=== PATIENT | female | born 1950 | race Caucasian/White ===

== ENCOUNTER → 2016-08-24 | Outpatient (CLI) | payer OTHER | LOC: FIMAGING 13:51 | PROVIDERS: ATTEND Physician Assistant | DX: J18.9 Pneumonia, unspecified organism (principal) ==

== ENCOUNTER → 2016-10-12 | Outpatient (CLI) | payer OTHER | LOC: FIMAGING 14:50 | PROVIDERS: ATTEND Physician Assistant | DX: J18.9 Pneumonia, unspecified organism (principal); M16.11 Unilateral primary osteoarthritis, right hip; M25.551 Pain in right hip ==

== ENCOUNTER 2016-12-08 13:04 | Day surgery (SDC) | payer OTHER ==
--- NOTE | 2016-12-08 13:20 | PDHPUP ---
History & Physical Update H&P update statement: This history and physical update is based on an assessment of the patient which was completed after admission or registration (within 24 hours), but prior to the surgery/procedure. H&P update: H&P reviewed & patient examined, no change in patient's condition since H&P completed
--- NOTE | 2016-12-08 13:21 | PDPROPOC ---
Sedation Plan of Care Sedation Plan of Care: vital signs stable, mental status noted, patient educated of risks, benefits, alternatives, patient can tolerate sedation ASA Classification: ASA 2 Planned drugs: fentanyl, midazolam Mallampati Score: Class 2 Mallampati Reference Image:
[2016-12-08 14:28] VITALS: PULSE 74; TEMP 97.7
[2016-12-08] MEDS ORDERED: LIDOCAINE 1% 300 MG/30 ML SDV ONE (14:33)
[2016-12-08] MEDS ORDERED: LIDOCAINE 2% JELLY 5 ML TUBE ONE (14:34)
[2016-12-08] MEDS ORDERED: fentaNYL 100 MCG/2 ML INJ ONE (14:44)
[2016-12-08] MEDS ORDERED: MIDAZOLAM 2 MG/2 ML VIAL ONE ×2 (14:44→15:09)
[2016-12-08 17:12] VITALS: RESP 14
[2016-12-08 17:27] VITALS: BP 139/84; O2SAT 94
== END 2016-12-08 17:35 | disposition home or self-care (01) ==
LOC: FSGY 13:04
PROVIDERS: ATTEND Internal Medicine Critical Care Medicine
PROC: 0B9C8ZX Drainage of Right Upper Lung Lobe, Via Natural or Artificial Opening Endoscopic, Diagnostic (ICD-10-PCS; principal; 2016-12-08 14:00)
DX: R05 Cough (principal); R91.8 Other nonspecific abnormal finding of lung field; I10 Essential (primary) hypertension; E03.9 Hypothyroidism, unspecified; Z80.3 Family history of malignant neoplasm of breast; Z82.3 Family history of stroke
CPT/HCPCS: J0171; J2250; J3010

== ENCOUNTER → 2017-01-27 | Outpatient (CLI) | payer OTHER | LOC: CIMAGING 11:17 | PROVIDERS: ATTEND Specialist | DX: J18.9 Pneumonia, unspecified organism (principal); J98.4 Other disorders of lung | CPT/HCPCS: 71250-PO ==

== ENCOUNTER → 2017-03-01 | Outpatient (CLI) | payer OTHER | LOC: FIMAGING 14:05 | PROVIDERS: ATTEND Physician Assistant | DX: Z12.31 Encounter for screening mammogram for malignant neoplasm of breast (principal); Z80.3 Family history of malignant neoplasm of breast | CPT/HCPCS: G0202 ==

== ENCOUNTER → 2017-04-19 | Outpatient (CLI) | payer OTHER | LOC: FIMAGING 09:04 | PROVIDERS: ATTEND Physician Assistant | DX: Z13.820 Encounter for screening for osteoporosis (principal); M85.80 Other specified disorders of bone density and structure, unspecified site; Z78.0 Asymptomatic menopausal state ==

== ENCOUNTER → 2017-07-23 | Outpatient (CLI) | payer OTHER | LOC: FIMAGING 08:14 | PROVIDERS: ATTEND Orthopaedic Surgery | DX: Z01.818 Encounter for other preprocedural examination (principal); M16.0 Bilateral primary osteoarthritis of hip ==

== ENCOUNTER 2017-08-02 11:06 | Inpatient (IN) | payer OTHER ==
--- NOTE | 2017-08-02 06:32 | PDHPUP ---
History & Physical Update H&P update statement: This history and physical update is based on an assessment of the patient which was completed after admission or registration (within 24 hours), but prior to the surgery/procedure. H&P update: no change in patient's condition since H&P completed
--- NOTE | 2017-08-02 06:33 | PDIAF ---
- Diagnosis Diagnosis: right hip djd Code Status: Full Code - Medication Management Discharge Medications: Medications to Continue on Transfer Aspirin [Aspirin 81mg (*)] 81 mg PO DAILY 12/07/16 [Last Taken 11/30/16] Levothyroxine [Synthroid 75 mcg (*)] 75 mcg PO SUMOWETHFRSA@06 12/07/16 [Last Taken 12/08/16] Valsartan [Diovan] 320 mg PO DAILY 12/07/16 [Last Taken 12/08/16] Discharge Medications: Refer to the Discharge Home Medication list for PRN reason. - Orders Services needed: Physical Therapy Diet Recommendation: no restrictions on diet Diet Texture: Regular Texture Diet Activity/Weight Bearing Restrictions: wbat. anterior hip precautions. keep dressing in place. if dressing becomes saturated change daily. f/u at two weeks. seek attn for increasing pain, drainage, swelling or other focal complaint - Follow Up Care Current Providers and Referrals: Jill Hirsch PA [Primary Care Provider] -
[~2017-08-02 11:06] MED LIST: ROPIVACAINE 0.2% 80 MG, EPINEPHrine 0.2 MG, KETOROLAC TROMETHAMINE 30 MG, morphINE 10 M... IU ONE; TRANEXAMIC ACID 1,000 MG in NS 100 ML IV ONE; VANCOMYCIN 1 GM in NS 250 ML IV ONE; VANCOMYCIN PHARMACY TO DOSE MISC ONE
[2017-08-02] MEDS ORDERED: LIDOCAINE 1% 2 ML INJ ID PRN (11:19)
[2017-08-02] MEDS ORDERED: FAMOTIDINE 20 MG TAB PO ONE (11:19)
[2017-08-02] MEDS ORDERED: LR 1,000 ML IV ONE (11:19)
[2017-08-02] MEDS ORDERED: ACETAMINOPHEN 325 MG TAB PO ONE (11:19)
[2017-08-02] MEDS ORDERED: ACETAMINOPHEN 325 MG TAB ONE (11:48)
[2017-08-02] MEDS ORDERED: MIDAZOLAM 2 MG/2 ML VIAL IVP ONE (12:25)
--- NOTE | 2017-08-02 12:27 | PDANEPAE ---
ANE History of Present Illness DJD R hip s/f R RICKY ANE Past Medical History - Cardiovascular History Hx Hypertension: Yes Hx Arrhythmias: No Hx Chest Pain: No Hx Coronary Artery / Peripheral Vascular Disease: No Hx CHF / Valvular Disease: No Hx Palpitations: No Cardiovascular History Comment: pcp monitors bp meds. STRESS TEST ' WNL. - Pulmonary History Hx COPD: No Hx Asthma/Reactive Airway Disease: No Hx Recent Upper Respiratory Infection: No Hx Oxygen in Use at Home: No Hx Sleep Apnea: No Sleep Apnea Screening Result - Last Documented: Negative Pulmonary History Comment: BILAT PNEUMONIA W/RESIDUAL COUGH-07-29;. 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 breast biopsy- surgical. breast biopsy x2 in imaging ANE Review of Systems Review of Systems: - Exercise capacity METS (RN): 4 METS - Systems Hematologic/Lymphatic: Reports: no symptoms ANE Patient History - Allergies Allergies/Adverse Reactions: Cephalosporins Allergy (Verified 07/28/17 10:24) Rash diphenhydramine [From Benadryl] Allergy (Verified 08/02/17 11:31) Anxiety meperidine [From Demerol] Allergy (Verified 08/02/17 11:31) Anxiety nitrofurantoin [From Macrodantin] Allergy (Verified 07/28/17 10:24) Rash Penicillins Allergy (Verified 07/28/17 10:24) Rash promethazine [From Phenergan] Allergy (Verified 07/28/17 10:24) Other-Enter Comments - Home Medications Home Medications: Aspirin [Aspirin 81mg (*)] 81 mg PO DAILY 12/07/16 [Last Taken 07/27/17] Levothyroxine [Synthroid 75 mcg (*)] 75 mcg PO SUMOWETHFRSA@06 12/07/16 [Last Taken 08/02/17] Valsartan [Diovan] 320 mg PO DAILY 12/07/16 [Last Taken 08/01/17] - NPO status NPO Since - Liquids (Date): 08/02/17 NPO Since - Liquids (Time): 09:00 NPO Since - Solids (Date): 08/01/17 NPO Since - Solids (Time): 21:30 - Smoking Hx Smoking Status: Never smoked - Family Anes Hx Family Hx Anesthesia Complications: none ANE Labs/Vital Signs - Labs - CBC WBC: rewiewed and okay - Vital Signs Blood Pressure: 158/87 Heart Rate: 73 Respiratory Rate: 15 O2 Sat (%): 96 Height: 160.02 cm Weight: 58.967 kg ANE Physical Exam - Airway Neck exam: FROM Mallampati Score: Class 2 Mouth exam: normal dental/mouth exam - Pulmonary Pulmonary: no respiratory distress - Cardiovascular Cardiovascular: regular rate and rhythym - ASA Status ASA Status: II ANE Anesthesia Plan Anesthesia Plan: spinal
[2017-08-02] MEDS ORDERED: fentaNYL 100 MCG/2 ML INJ ONE (12:39)
[2017-08-02] MEDS ORDERED: PROPOFOL/EMULSION 500 MG/50 ML BOTTLE IV ONE (12:39)
[2017-08-02] MEDS ORDERED: BACITRACIN 50,000 UNITS/10 ML SYR IRR ONE (13:15)
[2017-08-02] MEDS ORDERED: PHENYLEPHRINE HCL 100 MCG/ML SYR ONE (13:18)
[2017-08-02] MEDS ORDERED: epHEDrine SULFATE 10 MG/ML SYR ONE (13:47)
[2017-08-02] MEDS ORDERED: PROPOFOL 200 MG/20 ML VIAL ONE (14:08)
[2017-08-02] MEDS ORDERED: NALOXONE HCL 0.4 MG/ML INJ IVP PRN (14:18)
[2017-08-02] MEDS ORDERED: ACETAMINOPHEN 500 MG TAB PO PRN (14:18)
[2017-08-02] MEDS ORDERED: ALBUTEROL 3 ML DEYVIAL IH PRN (14:18)
[2017-08-02] MEDS ORDERED: HYDROCODONE/APAP 5/325 TAB PO PRN (14:18)
[2017-08-02] MEDS ORDERED: LR 500 ML IV PRN (14:18)
[2017-08-02] MEDS ORDERED: ONDANSETRON 4 MG/2 ML VIAL IVP PRN (14:18)
[2017-08-02] MEDS ORDERED: DEXAMETHASONE 4 MG/ML VIAL IVP PRN (14:18)
[2017-08-02] MEDS ORDERED: LABETALOL HCL 5 MG/ML 20 ML MDV IVP PRN (14:18)
[2017-08-02] MEDS ORDERED: fentaNYL 100 MCG/2 ML INJ IVP PRN (14:18)
[2017-08-02] MEDS ORDERED: oxyCODONE IR 5 MG TAB PO PRN (14:18)
[2017-08-02] MEDS ORDERED: PHENYLEPHRINE HCL 100 MCG/ML SYR IVP PRN (14:18)
[2017-08-02] MEDS ORDERED: BISACODYL 10 MG SUPP PR PRN (14:21)
[2017-08-02] MEDS ORDERED: CYCLOBENZAPRINE 10 MG TAB PO PRN (14:21)
[2017-08-02] MEDS ORDERED: MAGNESIUM HYDROXIDE 30 ML UDCUP PO PRN (14:21)
[2017-08-02] MEDS ORDERED: LACTULOSE 20 GM/30 ML UDCUP PO PRN (14:21)
[2017-08-02] MEDS ORDERED: METOCLOPRAMIDE 10 MG/2 ML VIAL IVP PRN (14:21)
[2017-08-02] MEDS ORDERED: TEMAZEPAM 15 MG CAP PO PRN (14:21)
[2017-08-02] MEDS ORDERED: POLYETHYLENE GLYCOL 3350 17 GM PKT PO PRN (14:21)
--- NOTE | 2017-08-02 14:21 | POSTOPPROG ---
Post Op Note Date of Operation: 08/02/17 Surgeon: Oscar Salamanca Front Office Help: ashok Anesthesiologist: arslan Anesthesia: IV Sedation, Spinal Pre-op Diagnosis: right hip djd Post-op Diagnosis: same Indication: same Procedure: right hip jesus Inf/Abcess present in the surg proc area at time of surgery?: No Depth: Deep Incisional (Fascial) EBL: 100-500 Complications: none
[2017-08-02] MEDS ORDERED: LR 1,000 ML IV SCH (14:30)
[2017-08-02] MEDS: TRANEXAMIC ACID 650 MG TAB PO SCH (16:29)
[2017-08-02] MEDS: oxyCODONE IR 5 MG TAB PO PRN ×3 (18:25→23:39)
--- NOTE | 2017-08-02 18:35 | PDMN ---
Medical Necessity Medical necessity: IP surgery per [facility] cpt [id number] R RICKY
[2017-08-02] MEDS: FAMOTIDINE 20 MG TAB PO SCH (21:24)
[2017-08-02] MEDS: SENNOSIDES/DOCUSATE SODIUM TAB PO SCH (21:24)
[2017-08-02] MEDS: ASPIRIN 325 MG TAB PO SCH (23:39)
[2017-08-03] MEDS: oxyCODONE IR 5 MG TAB PO PRN ×2 (06:00→11:08)
[2017-08-03] MEDS: TRANEXAMIC ACID 650 MG TAB PO SCH (06:00)
--- NOTE | 2017-08-03 07:36 | PDIAF ---
- Diagnosis Diagnosis: right hip djd Code Status: Full Code - Medication Management Discharge Medications: Medications to Continue on Transfer Aspirin [Aspirin 81mg (*)] 81 mg PO DAILY 12/07/16 [Last Taken 07/27/17] Levothyroxine [Synthroid 75 mcg (*)] 75 mcg PO SUMOWETHSA@06 12/07/16 [Last Taken 08/02/17] Valsartan [Diovan] 320 mg PO DAILY 12/07/16 [Last Taken 08/01/17] Aspirin [Aspirin 325 mg (*)] 325 mg PO DAILY tab 08/03/17 [Last Taken Unknown] oxyCODONE IR [Oxycodone Ir (*)] 5 - 10 mg PO Q4 PRN #50 tab 08/03/17 [Last Taken Unknown] Discharge Medications: Refer to the Discharge Home Medication list for PRN reason. - Orders Services needed: Physical Therapy Diet Recommendation: no restrictions on diet Diet Texture: Regular Texture Diet Activity/Weight Bearing Restrictions: wbat. anterior hip precautions. keep dressing in place. if dressing becomes saturated change daily. f/u at two weeks. seek attn for increasing pain, drainage, swelling or other focal complaint Additional Instructions: TOTAL JOINT ARTHROPLASTY DISCHARGE INSTRUCTIONS 1. Your surgeon follows the [facility] protocol for reducing your risk of DVT (blood clots) following surgery. Medication will be ordered to prevent blood clots. A sudden increase in calf pain and/or swelling could indicate a blood clot in your leg. If this occurs, please call your surgeon or his/her administrative sales assistant. An ultrasound of the leg may be necessary to diagnose a blood clot. If you have conditions that make you a higher risk for blood clots, your surgeon may use more aggressive ways to prevent them. Notify your surgeon if you think you are a high risk for blood clots. 2. Wear your white surgical stockings (DANNY hose) for 2 weeks. This decreases your swelling and may help prevent blood clots. It is ok to remove DANNY hose at night time to give your legs a break. 3. Swelling and bruising in the surgical leg is common. If you feel that it is excessive, please notify your surgeon. 4. Elevate your surgical leg with the ankle above the hip several times every day. Please keep the leg straight when you elevate by putting pillows under your foot. Do not put pillows under your knee. This will make being able to fully straighten more difficult. This is uncomfortable, but try to do it as much as possible. 5. For total knee replacements use compressive wrap on your knee for 3-5 days after surgery, then you can discontinue it. 6. Use a walker or crutches for 1-2 weeks. Progress your weight-bearing as tolerated. You may start to use a cane when you feel stable and safe. 7. You will receive physical therapy instructions in the hospital. Continue those exercises at home. There are additional exercises in the total joint booklet you were given before surgery. Outpatient physical therapy will begin 7- 10 days after surgery. Please schedule this in advance. 8. Use ice on your knee at least 3-5 times every day for 30 minutes. This helps reduce pain and swelling. Also use it at night before falling asleep. 9. Leave your surgical dressing in place for 2 weeks. Your dressing is water resistant, but not waterproof. Cover it with Saran Wrap or Dikng-l-Kerh before showering. You may shower as soon as you feel safe entering a shower. If you notice bleeding from your incision 2 or 3 days after surgery, please notify your surgeon. 10. Due to narcotics, decreased activity and altered diet, most patients experience constipation after surgery. Use [id number] stool softeners while you are on narcotics. 11. You may drive a car when you are comfortable bearing weight, have good muscular control of your leg and are off narcotics. This usually occurs 2-4 weeks after surgery, depending on which leg was operated on. 12. If there are questions not addressed here, please refer the [facility] book given for more information. If you still have questions, please contact your surgeon s office. 13. If you have a life-threatening emergency, please call 911 and go to the emergency room immediately. For non-life threatening emergencies, please call your physicians office for advice before going to the emergency room. - Follow Up Care Current Providers and Referrals: Jill Hirsch PA [Primary Care Provider] - Oscar Salamanca MD [Medical Doctor] -
--- NOTE | 2017-08-03 07:38 | SOAPPROG ---
SOAP Progress Note Assessment/Plan: Assessment: s/p right jesus Plan: d/c home when cleared by pt anterior hip precautions seek attn for complications f/u at two weeks dvt precautions reviewed 08/03/17 07:36 Subjective: slight pain no cp or sob Objective: Vital Signs Temp Pulse Resp BP Pulse Ox 37.4 C 77 16 111/55 L 98 08/03/17 07:24 08/03/17 07:24 08/03/17 07:24 08/03/17 07:24 08/03/17 07:24 Laboratory Results 08/03/17 04:56 08/02/17 08/03/17 08/04/17 05:59 05:59 05:59 Intake Total 1270 Output Total 200 400 Balance 1070 -400 left iliac dressing reinforced old serrous drainage intact pf,df,ehl toes warm and pink neg homans cassie xrays stable anatomic alignment ICD10 Worksheet Patient Problems: Problems Problem Status Onset Hip arthritis Acute - ICD10 Problem Qualifiers (1) Hip arthritis
[2017-08-03] MEDS: ASPIRIN 325 MG TAB PO SCH (07:40)
[2017-08-03] MEDS: SENNOSIDES/DOCUSATE SODIUM TAB PO SCH (07:40)
[2017-08-03] MEDS: FAMOTIDINE 20 MG TAB PO SCH (07:41)
[2017-08-03] MEDS ORDERED: VALSARTAN 160 MG TAB PO SCH (09:00)
[2017-08-03] MEDS ORDERED: NON-FORMULARY NEW DRUG (Valsartan [Diovan] 320 MG) PO SCH (09:00)
--- NOTE | 2017-08-03 10:47 | ASMTCMCOM ---
CM Note CM Note Notes: Pt medically stable for d/c with [facility] PT. Orders to be obtained via [employer]. Date Signed: 08/03/2017 10:47 AM Electronically Signed By:MARIELENA Graham
[2017-08-03 11:54] VITALS: BP 114/61
[2017-08-04] MEDS ORDERED: LEVOTHYROXINE 75 MCG TAB PO SCH (06:00)
--- NOTE | 2017-08-13 07:20 | GDS ---
[f rep st] DISCHARGE SUMMARY ADMISSION DIAGNOSIS: Right hip degenerative joint disease. DISCHARGE DIAGNOSIS: Right hip degenerative joint disease. PROCEDURE: Right total hip arthroplasty. HISTORY OF PRESENT ILLNESS: Halie Bey is a 66-year-old woman with end-stage arthritis to her [facility] hip. She has clinical radiographic features consistent with this. She presents electively for a total hip replacement. HOSPITAL COURSE: The patient was admitted to the hospital floor after uncomplicated total hip arthro plasty. She quickly progressed with physical therapy. At the time of discharge, she is tolerating a n oral diet. Pain was well-controlled on oral medicines. She is voiding without difficulty. Dressi ngs are clean, dry, and intact. She has no calf swelling or tenderness. Negative Homans. X-rays ar e anatomic and serial hematocrit has remained stable. She has been cleared by Physical Therapy and u justinrstands her precautions. DISCHARGE ACTIVITY: She is weightbearing as tolerated. Anterior hip precautions will be observed. No soaking or immersion. May shower without the bandage. DISCHARGE MEDICATIONS: Oxycodone 5 mg 1-2 every 6 hours as needed for pain, aspirin 325 mg p.o. catie y for blood thinning. DISCHARGE INSTRUCTIONS: Follow up in 2 weeks. Seek attention for increasing swelling, redness, pain , other focal complaints. /[id number]/MODL
--- NOTE | 2017-08-13 07:45 | GOP ---
[f rep st] OPERATIVE REPORT DATE OF OPERATION: 08/02/2017 SURGEON: Oscar Salamanca MD SUPERVISOR FINISHING ROOM: Juan Pablo Koch, SENIOR SQL DEVELOPER, [facility], who was a medical necessity for the entirety of the case. PREOPERATIVE DIAGNOSIS: Right hip degenerative joint disease. POSTOPERATIVE DIAGNOSIS: Right hip degenerative joint disease. PROCEDURE PERFORMED: Right total hip arthroplasty, anterior/MAKOplasty. FINDINGS: SPECIMENS: To Pathology, femoral head. ESTIMATED BLOOD LOSS: 200 cc. INDICATIONS: The patient is a 66-year-old woman who has end-stage arthritis to her right hip. She h as failed all attempts at conservative management. I have recommended total hip replacement. She un derstood the risks, benefits, alternatives, and wished to proceed. Written consent was signed and pl aced in patient's chart. DESCRIPTION OF PROCEDURE: The patient was identified in the preanesthesia area, the right hip clearl y demarcated as the operative site with indelible marker. She was given 1 g of vancomycin given a pe nicillin allergy. In the OR, a spinal anesthetic was placed followed by sedation. She was positione d in the supine position. Attention was turned to the pelvis and both lower extremities, which were sterilely prepped and draped in the usual fashion. Appropriate time-out procedure had been carried o ne. Attention was first turned to the left hemipelvis. A linear incision was made over the iliac cr est, and 3 pins were then placed. The pelvic reference array was affixed. Attention was returned to the right hip. An anterior approach was made. This was carried sharply through the skin and subcut aneous tissue, directly to the fascia overlying the tensor fascia rick. This was opened in the origi n of its fibers. The tensor was retracted laterally. The underlying vascular structures were identi fied, ligated, cauterized, and transected. The rectus was elevated off the anterior capsule and blun t Homans were placed over the medial and superior aspects of the femoral neck. A T capsulotomy was m jennifer. The retractors were then placed in an intracapsular position. An acetabular checkpoint was emilee shaggy and a bony wedge was withdrawn from the femoral neck followed by removal of the femoral head. Th ere was changes consistent with end-stage arthritis. The contents of the acetabular labrum were then sharply excised. The bony landmarks entered into the computer in standard fashion. Using the [employer] lasty robot protocol, a single-stage reaming for a size 48 mm cup was then placed with an opening ang le of 40 degrees and anteversion of 20 degrees. A Tritanium acetabular shell was then impacted, conf irmed to be fully seated. The 32 mm 0-degree X3 liner was then impacted, confirmed to be fully seate d. Attention was then turned to the femur, which was delivered through the use of extension of the t able, soft tissue releases, and retractor placement. The proximal canal was opened and serial broach ing was carried out to a size 3 stem. Trial reduction was carried out. Ultimately, a size 3 stem an d 32 mm -4 mm Biolox head was selected to restore leg lengths. Full stability profile was achieved w ith full extension, external rotation, without evidence of subluxation. The final stem was then impa cted. The 32 mm -4 mm Biolox head was then impacted across the cleansed trunnion. The hip was copio usly irrigated and reduced. This was stable and appropriate as before. Leg lengths were equal. The wound was copiously irrigated, closed in layers using 0 Vicryl, 2-0 Monocryl, and hemant. The mehrdad ins were instilled with a joint cocktail of ropivacaine, morphine, Toradol, and epinephrine. Sterile dressing was applied. The patient was awakened, extubated, and taken to recovery room in good, stab le condition. TOTAL TOURNIQUET TIME: None. COMPLICATIONS: None. IMPLANTS: Reader Tritanium acetabular shell, size 48 mm Trident X3 0-degree polyethylene insert, 32 mm, Biolox Delta ceramic head, 32 mm -4 mm neck length, Accolade II 127-degree neck angle hip stem s ize 3. DISPOSITION: To the recovery room, then floor. /[id number]/MODL
--- NOTE | 2017-08-18 11:19 | GPROG ---
[f rep st] PROGRESS NOTE POSTANESTHESIA NOTE. DATE OF SERVICE: 08/02/2017 The patient was seen in recovery room August 02, 2017, at about 3:15 in the afternoon or approximately 1 /2 hour after arrival, at which point she was showing good resolution of her spinal with no signific ant hemodynamic or respiratory issues. She was having no significant pain, nausea, vomiting, or othe r anesthetic issues. There were no apparent anesthetic complications. /[id number]/MODL
== END 2017-08-03 13:54 | disposition home health service (06) | DRG 470 ==
LOC: F3N 11:06
PROVIDERS: ADMIT Orthopaedic Surgery; ATTEND Orthopaedic Surgery
PROC: 0SR904Z Replacement of Right Hip Joint with Ceramic on Polyethylene Synthetic Substitute, Open Approach (ICD-10-PCS; principal; 2017-08-02 12:30)
DX: M16.11 Unilateral primary osteoarthritis, right hip (principal); I10 Essential (primary) hypertension; G89.29 Other chronic pain
CPT/HCPCS: 97161-GP; 97165-GO; 97535-GO; G8978-GP-CI; G8979-GP-CI; G8980-GP-CI; G8987-GO-CI; G8988-GO-CI; G8989-GO-CI; J0171; J1885; J2250; J2270; J2370; J2704; J2795; J3010; J3370

== ENCOUNTER 2017-08-09 10:28 | Emergency (ER) | payer OTHER ==
--- NOTE | 2017-08-09 11:49 | EDPHY ---
H & P Stated Complaint: RLE pain s/p R total hip replacement Time Seen by Provider: 08/09/17 11:30 HPI/ROS: CHIEF COMPLAINT: Right lower extremity pain HISTORY OF PRESENT ILLNESS: 66-year-old female 1 week status post right hip replacement presents with right lower extremity pain. She has been doing well in the postoperative period until yesterday, when she developed increasing pain of the right knee. The knee pain is sharp and stabbing and radiates up and down her leg. Yesterday evening, she was having difficulty bearing weight on the right lower extremity, but this morning the pain is less and she has been walking with her walker. She took Percocet without relief yesterday. She had 1 episode of fever 4-5 days ago, no fever since then. REVIEW OF SYSTEMS: complete 10 point ROS negative except at noted in the HPI - Personal History Current Tetanus/Diphtheria Vaccine: Unsure Current Tetanus Diphtheria and Acellular Pertussis (TDAP): Unsure - Medical/Surgical History Hx Asthma: No Hx Chronic Respiratory Disease: No Hx Diabetes: No Hx Cardiac Disease: Yes Hx Renal Disease: No Hx Cirrhosis: No Hx Alcoholism: No Hx HIV/AIDS: No Hx Splenectomy or Spleen Trauma: No Other PMH: htn; hypothryroid; hyperlipiemia; hemochromotosis; bipsies for breast screens and appendectomy, R total hip replacement - Social History Smoking Status: Former smoker Additional Social History: , is a retired ED doc - Physical Exam Exam: General Appearance: Alert, pleasant Eyes: Pupils equal and round, no conjunctival pallor ENT, Mouth: Mucous membranes moist Neck: Normal inspection Respiratory: Lungs are clear to auscultation Cardiovascular: Regular rate and rhythm Gastrointestinal: Abdomen is soft and nontender Neurological: A&O, nonfocal exam Skin: Warm and dry, no rash Extremities: Right lower extremity-surgical wound on the anterior upper thigh is clean dry and intact, no erythema or drainage; right thigh swelling and tenderness, especially laterally, right knee-small area of ecchymosis on the anterior aspect of the knee over the patella, no joint effusion and no tenderness except for over the area of ecchymosis Psychiatric: Mood and affect normal Constitutional: Initial Vital Signs Temperature (C) 36.8 C 08/09/17 10:40 Heart Rate 76 08/09/17 10:40 Respiratory Rate 20 08/09/17 10:40 Blood Pressure 126/75 H 08/09/17 10:40 O2 Sat (%) 95 08/09/17 10:40 O2 Delivery Mode Room Air Allergies/Adverse Reactions: diphenhydramine Allergy (Unknown, Unverified 08/09/17 10:39) Anxiety meperidine Allergy (Unknown, Unverified 08/09/17 10:39) Anxiety nitrofurantoin Allergy (Unknown, Unverified 08/09/17 10:39) Rash promethazine Allergy (Unknown, Unverified 08/09/17 10:39) Other-Enter Comments Cephalosporins Allergy (Verified 08/09/17 10:39) Rash Penicillins Allergy (Verified 08/09/17 10:39) Rash Home Medications: Medication Instructions Recorded Aspirin [Aspirin 81mg (*)] 81 mg PO DAILY 12/07/16 Levothyroxine [Synthroid 75 mcg 75 mcg PO SUMOWETHFRSA@06 12/07/16 (*)] Valsartan [Diovan] 320 mg PO DAILY 12/07/16 Aspirin [Aspirin 325 mg (*)] 325 mg PO DAILY tab 08/03/17 oxyCODONE IR [Oxycodone Ir (*)] 5 - 10 mg PO Q4 PRN #50 tab 08/03/17 Colace 08/09/17 Percocet 5-325 mg Tablet 08/09/17 Medical Decision Making - Diagnostics Imaging Results: Femur X-Ray 08/09/17 11:43 Impression: Postoperative changes of the right hip with no acute fracture identified... Knee X-Ray 08/09/17 11:43 Impression: Negative for fracture. Extremity Venous Study 08/09/17 11:44 Impression: No evidence of deep vein thrombosis in the right lower extremity. Results called and discussed with JEYSON FERNANDES M.D. on 08/09/2017 at 12:33 Imaging: Discussed imaging studies w/ call or contact centre manager Radiologist, I viewed and interpreted images myself ED Course/Re-evaluation: This pt presents with increasing rt knee/leg pain after recent THR. No evidence of infection on exam and WBC normal. Xray and sono unremarkable. Unclear etiology of increased pain, but I feel that she is safe/stable for d/c. F/u ortho 1-2 days. Warning signs discussed. Differential Diagnosis: includes though not limited to cellulitis, jt infection, DVT, necrotizing fasciitis, abscess - Data Points Laboratory Results: Laboratory Results 08/09/17 11:53 08/09/17 11:53 Medications Given: Discontinued Medications Oxycodone/Acetaminophen (Percocet 5/325) 2 tab PO EDNOW ONE Stop: 08/09/17 12:24 Last Admin: 08/09/17 12:50 Dose: 1 tab Departure - Departure Disposition: Home, Routine, Self-Care Clinical Impression: Knee pain, right Qualifiers: Chronicity: acute Qualified Code(s): M25.561 - Pain in right knee Condition: Good Instructions: Knee Pain (ED) Additional Instructions: Return for worsening symptoms, fever or any concerns. Referrals: Jill Hirsch PA [Primary Care Provider] - As per Instructions Oscar Salamanca MD [Medical Doctor] - 1-2 days without fail
[2017-08-09 12:01] LABS: PLATELET COUNT 302 10^3/uL (150-400)
[2017-08-09] MEDS ORDERED: OXYCODONE/APAP 5/325 TAB PO ONE (12:23)
[2017-08-09 13:36] VITALS: BP 115/65
== END 2017-08-09 13:35 | disposition home or self-care (01) ==
DX: M25.561 Pain in right knee (principal); I10 Essential (primary) hypertension; Z79.82 Long term (current) use of aspirin; Z87.891 Personal history of nicotine dependence

== ENCOUNTER → 2017-08-20 | Outpatient (CLI) | payer OTHER | LOC: FIMAGING 14:52 | PROVIDERS: ATTEND Nurse Practitioner Adult Health | DX: J45.909 Unspecified asthma, uncomplicated (principal) ==

== ENCOUNTER → 2017-09-13 | Outpatient (CLI) | payer OTHER | LOC: BMCIMAGING 10:15 | PROVIDERS: ATTEND Physician Assistant | DX: Z09 Encounter for follow-up examination after completed treatment for conditions other than malignant neoplasm (principal); Z96.641 Presence of right artificial hip joint ==

== ENCOUNTER → 2017-09-27 | Outpatient (CLI) | payer OTHER | LOC: BMCIMAGING 07:46 | PROVIDERS: ATTEND Physician Assistant | DX: K76.0 Fatty (change of) liver, not elsewhere classified (principal); K80.20 Calculus of gallbladder without cholecystitis without obstruction ==

== ENCOUNTER → 2018-01-26 | Outpatient (CLI) | payer OTHER | LOC: FIMAGING 13:10 → FLAB 13:10 → EDSTATUS 13:12 | PROVIDERS: ATTEND Physician Assistant | DX: R05 Cough (principal); R50.9 Fever, unspecified ==

== ENCOUNTER → 2018-02-09 | Outpatient (CLI) | payer OTHER | LOC: BMCIMAGING 16:04 | PROVIDERS: ATTEND Orthopaedic Surgery | DX: Z09 Encounter for follow-up examination after completed treatment for conditions other than malignant neoplasm (principal); Z96.641 Presence of right artificial hip joint ==

== ENCOUNTER → 2018-03-24 | Outpatient (CLI) | payer OTHER | LOC: FIMAGING 15:08 | PROVIDERS: ATTEND Physician Assistant | DX: Z12.31 Encounter for screening mammogram for malignant neoplasm of breast (principal); Z80.3 Family history of malignant neoplasm of breast ==

== ENCOUNTER → 2018-08-10 | Outpatient (CLI) | payer OTHER | LOC: BMCIMAGING 14:51 ==